=== PATIENT | male | born 1965 | race Caucasian/White ===

== ENCOUNTER → 2022-12-01 | Outpatient (CLI) | payer BC ==
[~2022-12-01] MED LIST: IOPAMIDOL 370 MG/ML 100 ML INFUS..BTL INJ ONE; SODIUM CHLORIDE 0.9% 100 ML ONE
[2022-12-01 14:45] LABS: CREATININE, SERUM 1.18 mg/dL (0.72-1.25)
== END ==
LOC: CT 13:43
PROVIDERS: ATTEND Emergency Medicine
DX: H53.121 Transient visual loss, right eye (principal)
CPT/HCPCS: 36415; 70496; 82565; 84520; J7050; Q9967